=== PATIENT | male | born 1940 | race Caucasian/White ===

== ENCOUNTER → 2022-06-23 | Outpatient (CLI) | payer OTHER | LOC: HEART 5 15:16 | DX: R01.1 Cardiac murmur, unspecified (principal); R06.02 Shortness of breath; I08.3 Combined rheumatic disorders of mitral, aortic and tricuspid valves | CPT/HCPCS: 93306 ==

== ENCOUNTER → 2022-06-27 | Outpatient (CLI) | payer OTHER | LOC: NM 12:58 | DX: R07.9 Chest pain, unspecified (principal) | CPT/HCPCS: 78452; 93017; A9502 ==